=== PATIENT | female | born 1970 | race American Indian/Alaskan Native ===

== ENCOUNTER 2017-06-07 08:45 | Emergency (ER) | payer SELFPAY ==
[2017-06-07] MEDS ORDERED: NACL 0.9% 1000 ML 2,000 ML IV ONE (18:04)
[2017-06-07] MEDS ORDERED: TORADOL IV ONE (18:04)
[2017-06-07] MEDS ORDERED: MUCINEX ER PO ONE (18:07)
[2017-06-07] MEDS ORDERED: NORCO 5/325 PO ONE (18:07)
[2017-06-07] MEDS ORDERED: TESSALON PERLES PO ONE (18:07)
--- NOTE | 2017-06-07 19:16 | XRay Report ---
FINAL REPORT PROCEDURE: XR CHEST 1V AP TECHNIQUE: Chest radiograph anteroposterior view. CPT 57034 HISTORY: chest pain COMPARISON: No prior studies are available for comparison. FINDINGS: Heart: Normal. Mediastinum/Vessels: Normal. Lungs/Pleural space: No infiltrate, effusion, or pneumothorax is seen. Bony thorax: No acute osseous abnormality. Life support devices: None. IMPRESSION: No radiographic evidence of acute cardiopulmonary abnormality.
--- NOTE | 2017-06-07 19:46 | Emergency Department Report ---
HPI - General Chief Complaint: Headache Time Seen by Provider: 06/07/17 17:13 - HPI HPI: The patient is a 46-year-old female presents for evaluation of headache and cough. The patient reports cough and headache for the past 3 days, headache is frontal in location, aching in quality, mild, currently 5/10 in severity, exacerbated with coughing. She also reports soreness of the throat and generalized myalgias. The patient denies fever, chest pain, syncope, dyspnea, hemoptysis, unilateral leg swelling, recent immobilization, history of DVT or PE. ED Past Medical Hx - Past Medical History Hx Hypertension: Yes - Medications Home Medications: Home Medications Medication Instructions Recorded Confirmed Last Taken Type Ibuprofen [Motrin] 800 mg PO Q8HR PRN #15 tablet 06/07/17 Unknown Rx Ondansetron [Zofran TAB] 4 mg PO Q8HR PRN #20 tablet 06/07/17 Unknown Rx Oseltamivir [Tamiflu] 75 mg PO BID #10 cap 06/07/17 Unknown Rx Phenylephrine/Dm/Acetaminop/GG 20 ml PO Q4HR PRN #180 liquid 06/07/17 Unknown Rx [Mucinex Dned-Hmq-Dfumydegrq Lq] ED Review of Systems ROS: Stated complaint: FLU LIKE SYMPTOMS Other details as noted in HPI Constitutional: denies: fever ENT: denies: throat or neck pain Respiratory: reports cough denies: shortness of breath Cardiovascular: denies: chest pain Endocrine: denies unexplained weight loss or gain Gastrointestinal: denies: abdominal pain, nausea Genitourinary: denies: dysuria Musculoskeletal: denies: leg swelling Skin: denies: rash Neurological: denies: headache Hematological/Lymphatic: denies: easy bleeding or easy bruising Psych: denies sadness or hopelessness Physical Exam - Physical Exam Vital Signs: Vital Signs 06/07/17 06/07/17 06/07/17 09:14 09:21 17:01 Temperature 99.5 F 99.5 F Pulse Rate 110 H 110 H Respiratory 18 18 Rate Blood Pressure 116/80 116/80 O2 Sat by Pulse 99 99 Oximetry Physical Exam: General: well-nourished, well-developed, no acute distress Head: Normocephalic, atraumatic Eyes: normal sclera ENT: Mucous membranes are pale and dry Neck: No neck stiffness, no cervical adenopathy Respiratory: Breath sounds equal bilaterally, no wheezing, rales, or rhonchi Cardio: S1 and S2 present, no murmurs, rubs, gallops, capillary refill is delayed Abdomen: Normoactive bowel sounds, soft abdomen, no rigidity, no guarding or rebound tenderness Musc: No pitting edema Skin: No rash Neuro: alert oriented x4, normal cognition, speech normal, no facial drooping, no uvula or tongue deviation on protrusion, no deficit with rotation of neck or shoulder shrug, no obvious gross motor deficit in the upper or lower extremities with flexion or extension at the shoulder, elbow, wrist, hip, knee, or ankle bilaterally, no obvious gross sensation deficit to crude touch or 2 pt discrimination, 2+ symmetric reflexes on DTR testing, no coordination deficit with [id number] or [id number] testing, romberg negative, patient able to to ambulate without abnormal gait Psych: Normal affect ED Course Vital Signs 06/07/17 06/07/17 06/07/17 09:14 09:21 17:01 Temperature 99.5 F 99.5 F Pulse Rate 110 H 110 H Respiratory 18 18 Rate Blood Pressure 116/80 116/80 O2 Sat by Pulse 99 99 Oximetry ED Medical Decision Making - Medical Decision Making The patient was seen and examined by myself. The patient is placed on a quality assurance monitor body and continuous pulse ox. On initial evaluation, the patient was found to be in no distress. Evaluation orders were placed. EKG was negative for findings suggestive of acute cardiac infarct. The patient is given Tessalon Perles for their cough and Mucinex for nasal congestion, and a Thida for her pain. Chest x-ray is negative for pulmonary vessel congestion, pleural effusion, focal consolidation, or other acute cardio pulmonary disease process. The patient's x-ray is negative for pneumonia, the patient's history and evaluation are suggestive of acute influenza. The patient was reevaluated and reported that their symptoms were markedly improved. On reexamination the patient is found to have normal respiratory rate and O2 sat on pulse oximetry, and the patient's tachycardia has nearly resolved, HR now 103, and the patient has no costal retractions or diminishment of breath sounds on auscultation. The patient is stable for discharge with outpatient follow-up as the patient has no comorbidities and is young and healthy. The patient is given follow-up and return instructions, including a prescription for Tamiflu for treatment of probable acute influenza. The patient expressed understanding and agreed with the plan. The patient is discharged in stable condition. Critical care attestation.: If time is entered above; I have spent that time in minutes in the direct care of this critically ill patient, excluding procedure time. ED Disposition Clinical Impression: Acute non intractable tension-type headache, Dehydration, Influenza Disposition: TO HOME OR SELFCARE Is pt being admited?: No Does the pt Need Aspirin: No Condition: Stable Instructions: Dehydration (ED), Influenza (ED), Acute Headache (ED), Cold Symptoms (ED) Prescriptions: Ibuprofen [Motrin] 800 mg PO Q8HR PRN #15 tablet PRN Reason: Pain Ondansetron [Zofran TAB] 4 mg PO Q8HR PRN #20 tablet PRN Reason: Nausea Oseltamivir [Tamiflu] 75 mg PO BID #10 cap Phenylephrine/Dm/Acetaminop/GG [Mucinex Cpdw-Zdg-Cdwgncwxzg Lq] 20 ml PO Q4HR PRN #180 liquid PRN Reason: cough and sore throat Referrals: PRIMARY CARE, [Primary Care Provider] - 3-5 Days Time of Disposition: 19:47
[2017-06-07 19:50] VITALS: BP 126/78
== END 2017-06-07 21:22 | disposition home or self-care (01) ==
LOC: ED 08:45
DX: G44.209 Tension-type headache, unspecified, not intractable (principal); E86.0 Dehydration; J11.1 Influenza due to unidentified influenza virus with other respiratory manifestations; I10 Essential (primary) hypertension
CPT/HCPCS: 71045; 96360; 99284; J7030